=== PATIENT | male | born 1940 | race Caucasian/White ===

== ENCOUNTER → 2021-10-31 | Outpatient (CLI) | payer MEDICARE ==
[2021-10-31 17:13] LABS: Creatinine, Urine Random 98.9 mg/dL (27.00-270.00); Microalb/Creat Ratio UR, Rand 154.702 mg/g (0.000-30.000)
== END | disposition home or self-care (01) ==
LOC: LAB SHORT 14:42
PROVIDERS: Family Medicine
DX: I10 Essential (primary) hypertension (principal)
CPT/HCPCS: 82043; 82570